=== PATIENT | male | born 1985 | race Caucasian/White ===

== ENCOUNTER → 2020-10-06 11:48 | Outpatient (CLI) | payer OTHER, SELFPAY ==
[2020-10-06 12:40] LABS: COVID19 -Nasal RAPID Negative (Negative)
== END ==
PROVIDERS: Visit Provider Nurse Practitioner
DX: R05 Cough (principal); R51.9 Headache, unspecified; Z20.822 Contact with and (suspected) exposure to COVID-19
CPT/HCPCS: 87635